=== PATIENT | male | born 1950 | race Caucasian/White ===

== ENCOUNTER 2019-09-20 00:23 | Outpatient (CLI) | payer MEDICARE, SELFPAY ==
--- NOTE | 2019-09-20 10:20 | DI.NM_ITS ---
APPROVED REPORT Exam: Exercise Treadmill Patient Location: Out-Patient Room/Bed: Stress Nurse: Yelitza Peters RN BMI: 26.49 Baseline Rhythm: Sinus Rhythm Indications: Patient reports an increase of SOB (climbing stairs) over the last year and episodes of chest pain since March. He states his symptoms start with ???prickling??? in the fingers of his left hand; the ???prickling??? goes up left arm to left shoulder and across chest (tightness) and legs ge t weak. He has had 8 similar episodes since March. He states in the last 2 weeks his legs ache at re st and he cannot get comfortable. His legs hurt less with activity. He also reports it takes him ???2 0 minutes??? to recover from the SOB. Medical History Cardiac Medications: Simvastatin, Metoprolol, Lisinopril, Aspirin, Allergies: Lipitor and Crestor Cardiac Risk Factors: HTN, Hyperlipidemia, Smoking Previous Cardiac Procedures: 2 Stent placement. Pretest Chest Pain Characteristics: No chest pain Exercise History: Patient is usually active but has become more sedentary over the last year d/t symp toms. Lung Sounds: Clear to auscultation Heart Sounds: Regular Stress Test Details Test: Exercise stress converted to pharmacologic stress due to failure to obtain a diagnostic stress test. Reason for pharmacologic stress test: changed from exercise stress test due to inability to reach t arget heart rate. Nuclear Acquisition: Stress Tc-99m/Stress Tc-99m 1 day Rest Isotope: Tc-99m Sestamibi. Dose: 10.6 Date: 09/20/2019 Injection Time: 0845 Stress Isotope: Tc-99m Sestamibi. Dose: 32.6 Date: 09/20/2019 Injection Time: 1055 HR Max Heart Rate (APMHR): 151 bpm Resting HR Supine: 61 bpm Target HR (85% APMHR): 128 bpm Resting HR Standin bpm Max HR Achieved: 107 bpm % of APMHR: 70 HR response to stress: Normal HR response to stress BP Resting BP Supine: 130/70 mmHg Resting BP Standin/60 mmHg Max BP: 180/90 mmHg BP response to stress: Normal blood pressure response to stress. ECG Resting ECG: Sinus Rhythm ST Change: Normal Ectopy: none Stress ECG: Sinus Tachycardia ST Change: Normal Arrhythmia: None Recovery ECG: Sinus Rhythm Recovery ST Change: Normal Recovery Arrhythmia: None Clinical Reason for Termination: Dyspnea Stress Symptoms: Upper left arm ???tightness??? (2/10) at 4 minutes 17 seconds of exercise. Mid vargas al and slightly to the right chest ???tightness??? (2/10) at 58 seconds of recovery from exercise but before Lexiscan injection. NOTE: Lexiscan was injected at 2 minutes 23 seconds of recovery. Upper le ft arm ???tightness??? (8/10) and midsternal and slightly to the right chest ???tightness??? (5/10) a t 1 minutes post Lexiscan injection. Chest pain subsided by 5 minutes post Lexiscan injection. Upper left arm ???tightness??? subsided by 5 minutes 30 seconds post Lexiscan injection. Exercise duration: 5 min25 sec Highest Stage Achieved: Stage 2: 2.5 mph at 12% grade. Exercise capacity: 7.05 METs Functional Capacity: Mildly deminished capacity Stress ECG Conclusion 1. Patient exercised for 5 minutes 25 seconds (7 METS). Exercise was terminated due to dyspnea. 2. The patient did not reach 80 percent target heart rate was converted to pharmacological stress. R ate-pressure product was 19,000. 3. There was no evidence of ischemia on the ECG portion of this exam. Protocol Used: Michael Protocol Stress Test Summary STAGE Time (mins) Speed (mph) Grade (%) HR BP SYMPTOMS METS Supine 61 130/70 Standing 65 110/60 1 3 1.7 10 92 140/80 4.6 2 6 2.5 12 107 180/90 7 1 minute post Lexiscan injection 95 160/70 Transition to Lexiscan at 2 minutes 23 seconds of re covery 3 minute post Lexiscan injection 92 140/70 6 minute post Lexiscan injection 86 120/70 9 minute post Lexiscan injection 84 120/60 MPI Conclusion Ejection fraction was 36% with stress. The apex was hypokinetic. Otherwise no wall motion abnormali ties. There was a moderate-sized mostly fixed apical/apical anterior perfusion defect. This represents an abnormal stress test consistent with scar. Radiologist Interpretation Radiologist Interpretation by: Simone Campos MD Interpretation Date/Time: 09/21/2019 15:18:03
[2019-09-20] MEDS: Regadenoson 0.4 MG/5 ML SYR IVP (11:15)
== END 2019-09-20 00:43 ==
PROVIDERS: PCP Internal Medicine; Visit Provider Internal Medicine Interventional Cardiology
DX: R07.9 Chest pain, unspecified (principal); R06.02 Shortness of breath; R06.09 Other forms of dyspnea; I10 Essential (primary) hypertension; E78.5 Hyperlipidemia, unspecified; F17.200 Nicotine dependence, unspecified, uncomplicated
CPT/HCPCS: 78452; 93016; 93018; 93017; J2785